=== PATIENT | male | born 1985 | race Caucasian/White ===

== ENCOUNTER 2019-11-05 19:56 | Emergency (ER) | payer SELFPAY ==
[~2019-11-05] VITALS: Ht 177.8 cm; Wt 129.0 kg
[2019-11-05] MEDS ORDERED: ONDANSETRON 4MG ODT PO STA (20:28)
[2019-11-05 22:03] LABS: BASOPHILS % 0.3 % (0.0-2.0); EOSINOPHILS % 0.4 % (0.0-5.0); HEMATOCRIT. 50.6 % (42.0-52.0); HEMOGLOBIN. 17.4 g/dL (14.0-18.0); LYMPHOCYTES % 23.6 % (20.0-50.0); MEAN CORPUSCULAR HEMOGLOBIN 29.6 pg (28.0-32.0); MEAN CORPUSCULAR VOLUME 86.2 fL (80.0-94.0); MEAN PLATELET VOLUME 8.9 fl (7.4-10.4); MONOCYTES % 7.5 % (2.0-8.0); NEUTROPHILS % 68.2 % (40.0-76.0); PLATELET 324 x1000/uL (130-400); RED BLOOD CELL COUNT 5.87 mill/uL (4.7-6.1); RED CELL DISTRIBUTION WIDTH 13.7 % (11.6-14.6)
[2019-11-05 22:03] LABS: CLARITY URINE CLEAR (CLEAR); COLOR URINE YELLOW (YELLOW); KETONES URINE 3+ (NEGATIVE); LEUKOCYTE ESTERASE URINE NEGATIVE (NEGATIVE); NITRITE URINE NEGATIVE (NEGATIVE); OCCULT BLOOD URINE NEGATIVE (NEGATIVE); PROTEIN URINE NEGATIVE (NEGATIVE); SPECIFIC GRAVITY URINE 1.038 (1.005-1.030); UROBILINOGEN URINE 0.2 E.U./dL (0.2-1.0)
[2019-11-05 22:08] LABS: CHLORIDE 100 mEq/L (98-107)
[2019-11-05] MEDS ORDERED: ACETAMINOPHEN 325MG TABLET PO ONE (22:30)
[2019-11-05] MEDS ORDERED: SODIUM CHLORIDE 0.9% 1,000 ML IV ONE (23:07)
[2019-11-05] MEDS ORDERED: INSULIN REGULAR (HUMULIN R) 300UNITS/3ML IV NR (23:07)
[2019-11-06 01:23] VITALS: BP 135/67
== END 2019-11-06 02:06 | disposition home or self-care (01) ==
LOC: ER 19:56
DX: B34.9 Viral infection, unspecified (principal); R10.12 Left upper quadrant pain; R05 Cough; R50.9 Fever, unspecified; R63.0 Anorexia; R53.1 Weakness; R00.0 Tachycardia, unspecified; R06.02 Shortness of breath; R11.0 Nausea; Z87.442 Personal history of urinary calculi
CPT/HCPCS: 36415; 71045; 74176; 80053; 81003; 82962; 83690; 85025; 96374; 99285; J1815; Q0162